=== PATIENT | female | born 1960 | race Caucasian/White ===

== ENCOUNTER 2020-05-02 14:36 | Outpatient (CLI) | payer OTHER ==
[2020-05-02 15:49] LABS: BASOPHILS # (AUTO) 0.06 x10^3/uL (0-0.1); BASOPHILS % (AUTO) 1 % (0-1); EOSINOPHILS # (AUTO) 0.15 x10^3/uL (0-0.4); EOSINOPHILS % (AUTO) 2 % (1-7); LYMPHOCYTES # (AUTO) 1.62 x10^3/uL (1-3.4); LYMPHOCYTES % (AUTO) 19 % (22-44); MD NO; MEAN CORPUSCULAR HEMOGLOBIN 30.3 pg (27.0-34.8); MEAN CORPUSCULAR HGB CONC 32.5 g/dL (32.4-35.8); MEAN PLATELET VOLUME 8.8 fL (7.4-10.4); MONOCYTES % (AUTO) 6 % (2-9); NEUTROPHILS # (AUTO) 6.35 x10^3/uL (1.8-6.8); NEUTROPHILS % (AUTO) 73 % (42-75); PLATELET COUNT 267 x10^3/uL (130-400); RED BLOOD COUNT 4.33 x10^6/uL (3.82-5.3); RED CELL DISTRIBUTION WIDTH 13.5 % (9.6-15.2)
[2020-05-02 15:55] LABS: HCT (SEDRATE) 40.2 % (34.6-47.8)
[2020-05-02 16:00] LABS: INTERNATIONAL NORMALIZED RATIO 0.97 (0.93-1.1)
[2020-05-02 17:19] LABS: ALBUMIN 4.2 g/dL (3.4-5.0); ANION GAP 7 mmol/L (5-15); C-REACTIVE PROTEIN, QUANT 0.55 mg/dL (0.02-0.49); CALCIUM 8.9 mg/dL (8.5-10.1); CHLORIDE 108 mmol/L (98-107); CHOLESTEROL, TOTAL 244 mg/dL (140-239); HIGH-SENSITIVITY CRP 0.55 mg/dL (0.02-0.30); TRIGLYCERIDES 361 mg/dL (50-200); VLDL CHOLESTEROL 72 mg/dL (0-25)
[2020-05-02 17:46] LABS: % IRON SATURATION 19 % (20-55); ALANINE AMINOTRANSFERASE 40 U/L (12-78); ALKALINE PHOSPHATASE 72 U/L (45-117); BILIRUBIN,TOTAL 0.3 mg/dL (0.2-1.0); CHOL/HDL RATIO 6.1; CREATININE 1.06 mg/dL (0.55-1.02); FOLATE LEVEL 15.8 ng/mL (3.1-17.5); HDL CHOL % 16 % (28-40); HDL CHOLESTEROL (DIRECT) 40 mg/dL (40-60); IRON LEVEL 67 mcg/dL (50-170); LDL CHOLESTEROL,CALCULATED 132 mg/dL (54-169); LDL/HDL RATIO 3.3 (0.5-3.0); TOTAL IRON BINDING CAPACITY 350 mcg/dL (250-450); TOTAL PROTEIN 8.3 g/dL (6.4-8.2); TRANSFERRIN 309 mg/dL (200-360)
[2020-05-02 18:01] LABS: FREE T4 (FREE THYROXINE) 0.96 ng/dL (0.76-1.46)
== END 2020-05-02 23:59 | disposition home or self-care (01) ==
LOC: CFH 14:36
PROVIDERS: ATTEND Family Medicine
DX: I08.0 Rheumatic disorders of both mitral and aortic valves (principal); I11.9 Hypertensive heart disease without heart failure; I71.2 Thoracic aortic aneurysm, without rupture; D89.89 Other specified disorders involving the immune mechanism, not elsewhere classified; M89.49 Other hypertrophic osteoarthropathy, multiple sites
CPT/HCPCS: 36415; 80053; 80061; 82043; 82306; 82570; 82607; 82652; 82728; 82746; 83540; 83550; 83970; 84100; 84439; 84443; 84466; 84550; 85025; 85610; 85651; 85730; 86140; 86141; 93306

== ENCOUNTER 2020-05-09 08:31 | Outpatient (CLI) | payer OTHER ==
[2020-05-09] MEDS ORDERED: OMNIPAQUE 350 MG/ML, 100ML BOTTLE ONE (09:28)
== END 2020-05-09 23:59 | disposition home or self-care (01) ==
LOC: CFH 08:31
PROVIDERS: ATTEND Family Medicine
DX: I71.2 Thoracic aortic aneurysm, without rupture (principal); K76.0 Fatty (change of) liver, not elsewhere classified
CPT/HCPCS: 71275; Q9967

== ENCOUNTER 2020-10-02 08:59 | Day surgery (SDC) | payer OTHER ==
[~2020-10-02] VITALS: Ht 175.3 cm; Wt 102.0 kg
[2020-10-02] MEDS ORDERED: LEVO150T5 PO (09:53)
[2020-10-02] MEDS ORDERED: RAMI10CA59 PO (09:53)
[2020-10-02] MEDS ORDERED: METO25TA35 PO (09:53)
[2020-10-02] MEDS ORDERED: DESMOPRESSIN 4 MCG/ML IVPush ONE (10:00)
[2020-10-02] MEDS ORDERED: DESMOPRESSIN 20 MCG in SODIUM CHLORIDE 0.9% 50 ML IVPB ONE (10:30)
[2020-10-02 11:04] LABS: BASOPHILS % (AUTO) 1 % (0-1); EOSINOPHILS % (AUTO) 1 % (1-7); LYMPHOCYTES % (AUTO) 20 % (22-44); MEAN CORPUSCULAR HEMOGLOBIN 31.1 pg (27.0-34.8); MEAN CORPUSCULAR HGB CONC 34.4 g/dL (32.4-35.8); MEAN PLATELET VOLUME 8.4 fL (7.4-10.4); MONOCYTES % (AUTO) 7 % (2-9); NEUTROPHILS % (AUTO) 71 % (42-75); PLATELET COUNT 248 x10^3/uL (130-400); RED BLOOD COUNT 4.08 x10^6/uL (3.82-5.3); RED CELL DISTRIBUTION WIDTH 13.5 % (9.6-15.2)
[2020-10-02 11:09] LABS: MD NO
[2020-10-02 11:15] LABS: ANION GAP 8 mmol/L (5-15); CALCIUM 9.3 mg/dL (8.5-10.1); CHLORIDE 108 mmol/L (98-107); CREATININE 1.14 mg/dL (0.55-1.02)
[2020-10-02] MEDS ORDERED: VERAPAMIL 2.5 MG/ML, 2ML ONE (11:23)
[2020-10-02] MEDS ORDERED: HEPARIN 1,000 UNITS/ML, 10ML ONE (11:23)
[2020-10-02] MEDS ORDERED: MIDAZOLAM 1 MG/ML, 2ML ONE (11:23)
[2020-10-02] MEDS ORDERED: FENTANYL PF 100 MCG/2ML ONE (11:23)
[2020-10-02] MEDS ORDERED: LIDOCAINE-MPF 1%, 5ML ONE (11:23)
[2020-10-02] MEDS ORDERED: SODIUM CHLORIDE 0.9% 1,000 ML IV SCH (13:00)
== END 2020-10-02 14:16 | disposition home or self-care (01) ==
LOC: CACL 08:59
PROVIDERS: ATTEND Internal Medicine Cardiovascular Disease
DX: Z01.818 Encounter for other preprocedural examination (principal); I71.2 Thoracic aortic aneurysm, without rupture; I25.10 Atherosclerotic heart disease of native coronary artery without angina pectoris; I35.1 Nonrheumatic aortic (valve) insufficiency; I10 Essential (primary) hypertension; E78.2 Mixed hyperlipidemia; Z79.890 Hormone replacement therapy; Z79.899 Other long term (current) drug therapy
CPT/HCPCS: 36415; 80048; 85025; 93458; 99156; 99157; C1769; C1894; J1644; J2250; J2597; J3010; Q9967

== ENCOUNTER 2020-10-18 15:31 | Outpatient (CLI) | payer OTHER ==
[~2020-10-18 15:31] MED LIST: LEVO150T5 PO; METO25TA35 PO; RAMI10CA59 PO
== END 2020-10-18 23:59 | disposition home or self-care (01) ==
LOC: CVU 15:31
PROVIDERS: ATTEND Internal Medicine Cardiovascular Disease
DX: I08.0 Rheumatic disorders of both mitral and aortic valves (principal); I11.9 Hypertensive heart disease without heart failure
CPT/HCPCS: 93306

== ENCOUNTER 2020-11-15 08:05 | Outpatient (CLI) | payer OTHER ==
[2020-11-15] MEDS ORDERED: OMNIPAQUE 350 MG/ML, 75ML BOTTLE ONE (10:15)
== END 2020-11-15 23:59 | disposition home or self-care (01) ==
LOC: RAD 08:05
PROVIDERS: ATTEND Thoracic Surgery (Cardiothoracic Vascular Surgery)
DX: Z01.818 Encounter for other preprocedural examination (principal); I71.2 Thoracic aortic aneurysm, without rupture; E66.01 Morbid (severe) obesity due to excess calories; K76.0 Fatty (change of) liver, not elsewhere classified
CPT/HCPCS: 71046; 71275; Q9967

== ENCOUNTER 2020-11-15 08:59 | Outpatient (CLI) | payer OTHER ==
[2020-11-15 09:17] LABS: BASOPHILS % (AUTO) 1 % (0-1); EOSINOPHILS % (AUTO) 3 % (1-7); LYMPHOCYTES % (AUTO) 21 % (22-44); MEAN CORPUSCULAR HEMOGLOBIN 30.4 pg (27.0-34.8); MEAN CORPUSCULAR HGB CONC 33.5 g/dL (32.4-35.8); MEAN PLATELET VOLUME 8.3 fL (7.4-10.4); MONOCYTES % (AUTO) 7 % (2-9); NEUTROPHILS % (AUTO) 69 % (42-75); PLATELET COUNT 233 x10^3/uL (130-400); RED BLOOD COUNT 4.31 x10^6/uL (3.82-5.3); RED CELL DISTRIBUTION WIDTH 13.1 % (9.6-15.2)
[2020-11-15 09:28] LABS: ALBUMIN 4.2 g/dL (3.4-5.0); CALCIUM 9.6 mg/dL (8.5-10.1)
[2020-11-15 09:30] LABS: INTERNATIONAL NORMALIZED RATIO 0.95 (0.93-1.1); PROTHROMBIN TIME 10.2 Seconds (9.6-11.5)
[2020-11-15 09:33] LABS: % IRON SATURATION 15 % (20-55); ALANINE AMINOTRANSFERASE 56 U/L (12-78); ALKALINE PHOSPHATASE 64 U/L (45-117); BILIRUBIN,TOTAL 0.3 mg/dL (0.2-1.0); CREATININE 0.93 mg/dL (0.55-1.02); IRON LEVEL 55 mcg/dL (50-170); TOTAL IRON BINDING CAPACITY 371 mcg/dL (250-450)
[2020-11-15 09:41] LABS: ANION GAP 9 mmol/L (5-15); CHLORIDE 108 mmol/L (98-107)
== END 2020-11-15 23:59 | disposition home or self-care (01) ==
LOC: LAB 08:59
PROVIDERS: ATTEND Family Medicine
DX: Z01.818 Encounter for other preprocedural examination (principal); I10 Essential (primary) hypertension; R63.5 Abnormal weight gain; R63.2 Polyphagia
CPT/HCPCS: 36415; 80053; 82043; 82652; 82728; 83540; 83550; 85025; 85610; 85730